=== PATIENT | male | born 1960 | race Caucasian/White ===

== ENCOUNTER 2017-08-12 10:27 | Inpatient (IN) | payer BC ==
--- NOTE | 2017-08-07 13:27 | HP ---
PREPROCEDURE NOTE DATE OF ADMISSION: 08/12/2017 HISTORY: This is a 57-year-old man admitted through the Ambulatory Surgical Service of the [facility] for repair of a recurrent, chronically incarcerated ventral hernia. According to the patient, he has had many hernias in his life. He has had both right and left inguinal hernias repaired, as well as a ventral hernia which is now recurrent. No underlying GI, , or respiratory complaints to suggest predisposition to hernia formation. PAST MEDICAL HISTORY: Significant only for hypercholesterolemia. No history of hypertension, heart disease, diabetes, respiratory, renal, or hepatic insufficiency. PAST SURGICAL HISTORY: Significant for right and left inguinal hernia repairs as well as ventral hernia repair. Patient cannot recall whether the ventral hernia repair was accomplished with or without mesh. Patient also had back surgery for herniated disks. ALLERGIES: None known. REGULAR MEDICATIONS: Livalo. SOCIAL HISTORY: Positive tobacco, 1 pack per week. Social alcohol/not quantified. FAMILY HISTORY: Mother: History of hypertension. REVIEW OF SYSTEMS: Nil. PHYSICAL EXAMINATION: On examination, the patient has an obvious bulge involving the supraumbilical midline in the region of a transverse scar. The remainder of the abdomen is soft and nontender. In the supine position, the hernia is not reducible. IMPRESSION: Recurrent, chronically incarcerated, complex ventral hernia. PLAN: Reduction and repair of chronically incarcerated, recurrent, complex ventral hernia with mesh and bilateral component separation. Indications, terms, possible complications reviewed. Consent obtained. Patient will be seen preoperatively by Dr. Daryl Leonard. Please refer to his notes for those medical details. Claritza EVANS/[id number] cc: Daryl Leonard MD
[2017-08-11 16:50] VITALS: BMI 21.7
[2017-08-12] MEDS ORDERED: ceFAZolin SODIUM 1 GM VIAL ONE (11:14)
[2017-08-12] MEDS ORDERED: TAMSULOSIN HCL 0.4 MG CAP.ER.24H (FP) ONE (11:14)
[2017-08-12] MEDS ORDERED: oxyCODONE HCL 5 MG TABLET PO PRN (12:27)
[2017-08-12] MEDS ORDERED: PROMETHAZINE HCL 25 MG/1 ML VIAL IVPUSH PRN (12:27)
[2017-08-12] MEDS ORDERED: ONDANSETRON 4 MG/2 ML VIAL IVPUSH PRN ×2 (12:27→12:59)
[2017-08-12] MEDS ORDERED: LACTATED RINGERS SOLUTION 1,000 ML IV SCH (12:30)
[2017-08-12] MEDS ORDERED: MIDAZOLAM HCL 2 MG/2 ML SINGLE DOSE VIAL ONE (12:34)
[2017-08-12] MEDS ORDERED: PROPOFOL 20 ML ONE ×2 (12:35→13:23)
[2017-08-12] MEDS ORDERED: ROCURONIUM BROMIDE 50 MG/5 ML VIAL ONE ×2 (12:35→13:23)
[2017-08-12] MEDS ORDERED: DEXAMETHASONE SOD PHOSPHATE 4 MG/1 ML VIAL ONE ×2 (12:59→16:02)
[2017-08-12] MEDS ORDERED: ACETAMINOPHEN 325 MG TABLET (FP) PO PRN (12:59)
[2017-08-12] MEDS ORDERED: morphine CARPU-JECT 10 MG/1 ML DISP.SYRIN IVPB PRN (12:59)
[2017-08-12] MEDS ORDERED: LIDOCAINE HCL/PF 2% SDV 5ML VIAL ONE (12:59)
[2017-08-12] MEDS ORDERED: LIDOCAINE HCL 2% JELLY (5 ML/TUBE) ONE (12:59)
[2017-08-12] MEDS ORDERED: D5-1/2NS+20 MEQ KCL - 20 MEQ/1,000 ML INFUS.BAG IV SCH (13:00)
[2017-08-12] MEDS ORDERED: PHENYLEPHRINE HCL 10 MG/1 ML SINGLE DOSE VIAL ONE (13:35)
[2017-08-12] MEDS ORDERED: NEOSTIGMINE METHYLSULFATE 0.5 MG/ML - 10 ML MDV ONE (13:36)
[2017-08-12] MEDS ORDERED: DEXAMETHASONE SOD PHOSPHATE 4 MG/1 ML VIAL NR ONE (14:05)
[2017-08-12] MEDS ORDERED: BUPIVACAINE HCL/PF 0.25% (2.5MG/ML) 10 ML VIAL IJ ONE (14:05)
[2017-08-12] MEDS ORDERED: BUPIVACAINE HCL/PF 0.25% (2.5MG/ML) 10 ML VIAL ONE (16:02)
[2017-08-12] MEDS ORDERED: HYDROmorphone HCL CARPU-JECT 2 MG/1 ML DISP.SYRIN ONE (16:10)
[2017-08-12] MEDS: HYDROmorphone HCL CARPU-JECT 1 MG/1 ML DISP.SYRIN IVPUSH PRN ×2 (16:12→16:22)
[2017-08-12] MEDS: oxyCODONE HCL 5 MG TABLET PO PRN ×2 (19:15→23:22)
--- NOTE | 2017-08-12 20:04 | OP ---
DATE OF OPERATION: 08/12/2017 PREOPERATIVE DIAGNOSIS: Chronically incarcerated complex recurrent ventral hernia. POSTOPERATIVE DIAGNOSIS: Chronically incarcerated complex recurrent ventral hernia. PROCEDURE: Open bilateral component separation repair of complex chronically incarcerated recurrent ventral hernia with mesh/rectus sheath block (30 mL of 0.25% Marcaine/Decadron). OPERATING SURGEON: Shanel Bojorquez M.D. DIRECTOR DIGITAL ADVERTISING: Benjamin Brown M.D. ANESTHESIA: General, monitored. ANESTHESIOLOGIST: Taryn Dobbins M.D. HISTORY: This is a 57-year-old man who I had seen in the office recently for a recurrent chronically incarcerated complex hernia involving the upper midline of the abdomen, presents for repair of this hernia. Indications, alternatives, possible complications reviewed. Consent obtained. DESCRIPTION OF PROCEDURE: With the patient in the supine position, after general anesthesia, the abdomen was prepped and draped in sterile fashion using chlorhexidine. An upper midline incision was made directly over the hernia and deepened into the subcutaneous space. Hernia sac was easily encountered. It was cleaned to the level of the fascial ring. The sac was opened and the incarcerated omentum reduced. First working in the right direction, the retrorectus sheath was from the overlying rectus muscle fibers using sharp dissection. This separation continued in the inferolateral and superior directions, ultimately reaching the junction of the oblique and transversus musculature. The transversus muscle was from the overlying oblique muscles and the dissection continued in the right lateral direction. Once the right sided separation was completed, attention was now directed to the left side. Again, the left retrorectus sheath was from the overlying left rectus muscle fibers, again in the inferior lateral and superior directions. Once again, the separation of the oblique musculature from the transverse muscle ensued, and then dissection was carried further laterally to the left side. The posterior midline was then reconstructed using continuous 3-0 Maxon suture, reconstructing the posterior midline. Using 2 pieces of mesh, a composite graft was made. A piece of 15 x 15 cm Progrip mesh was sutured to a 16 x 20 cm piece of Elder Bio Ovitex mesh. This was accomplished by circumferentially suturing the meshes together at the periphery using interrupted 3-0 Vicryl sutures. The composite mesh was then placed in the retrorectus space with the Elder Bio side down and the Progrip side up. The mesh was laid out laterally in both directions as well as superiorly and inferiorly in the retrorectus space. Using an Absorbatacker and counter-palpation, the mesh was tacked at the periphery in a circumferential manner, ultimately anchoring the mesh in place. The wound was irrigated, the irrigant retrieved. Adequate hemostasis insured. The anterior sheath was then closed using interrupted 0 PDS sutures, leaving the mesh entirely in the retrorectus space. The subcutaneous tissues were irrigated and adequate hemostasis insured. The wound was ultimately closed in layers. The subcutaneous tissues were approximated using interrupted 3-0 chromic sutures. Subcuticular layer was approximated with interrupted 4-0 Biosyn sutures. Skin edges were approximated using metallic clips. Dermabond applied. Procedure terminated. Needle and instrument count correct. Estimated blood loss minimal. Specimens none. Drains none. Implant Elder Bio Ovitex (16 x 20 cm)/ Progrip polyester mesh (15 cm x 15 cm). Patient tolerated the procedure and was transferred to recovery. SHANEL BOJORQUEZ M.D. RR/[id number] cc: Daryl Leonard M.D.
[2017-08-13 01:50] VITALS: BP 113/75; PULSE 62; TEMP 98
[2017-08-13] MEDS: oxyCODONE HCL 5 MG TABLET PO PRN (04:21)
--- NOTE | 2017-08-13 05:43 | HOSP ---
Subjective - Review of Symptoms Events since last encounter: Called by nurse who reports that the patient wants to leave. I called Dr. Bojorquez's service and discussed with him. He is willing to discharge pt rather than have him sign out AMA as he was supposed to go home later. Instructed nurse to take a verbal order for discharge. I went to see pt, pt is visibly upset at noise level in his room, his roommate was brought up at 2am and he was awoken during this process then his roommate snored very loudly and pt was unable to sleep. Pt states that he is feeling ok from a surgical standpoint and just wishes to go home. Pt offered a room change but still wishes to go. Pt instructed to follow up with Dr. Bojorquez in 2 weeks time. Advised to call his office for an appointment. Physical Examination Vital Signs: Vital Signs Temperature 98.0 F 08/13/17 01:50 Pulse Rate 62 08/13/17 01:50 Respiratory Rate 20 08/13/17 01:50 Blood Pressure 113/75 08/13/17 01:50 O2 Sat by Pulse Oximetry (%) 95 08/12/17 21:00
[2017-08-13] MEDS ORDERED: ENOXAPARIN NA (PORCINE) 40 MG/0.4 ML DISP.SYRIN SQ SCH (10:00)
[2017-08-13] MEDS ORDERED: PANTOPRAZOLE SODIUM 40 MG VIAL IVPUSH SCH (10:00)
[2017-08-13] MEDS ORDERED: ASPIRIN 81 MG CHEWABLE TABLETS PO SCH (10:00)
--- NOTE | 2017-08-13 10:45 | DS ---
DATE OF ADMISSION: 08/12/2017 DATE OF DISCHARGE: 08/13/2017 ADMITTING DIAGNOSIS: Complex incarcerated incisional hernia. DISCHARGE DIAGNOSIS: Complex incarcerated incisional hernia. BRIEF HISTORY: This is a 57-year-old male who presented to [facility] for surgical management of a complex incarcerated incisional hernia. He underwent an open repair of this hernia on August 12 with component separation, myofascial release, mesh, and abdominal wall reconstruction. Please reference Dr. Bojorquez's operative report for further details. Postoperatively, he did well. He is tolerating diet and voiding at the time of discharge. He will go home on his usual home medications that mostly include vitamins and supplements. He will have a new prescription for Percocet which he will take as needed for pain. He will follow with Dr. Bojorquez in approximately 2 weeks' time. He is okay to shower, okay to drive. He will not lift anything more than 20 pounds. He will be on a regular diet, and he will likely require 2 weeks off from work. The patient's discharge was at 5:30 this morning. DO PHOENIX LANCE/[id number]
== END 2017-08-13 07:26 | disposition home or self-care (01) | DRG 355 ==
LOC: JASUSAT 10:27 → JSAMEDAYSX 12:59 → J6S 17:22
PROVIDERS: ADMIT Surgery; ATTEND Surgery
PROC: 0WUF0JZ Supplement Abdominal Wall with Synthetic Substitute, Open Approach (ICD-10-PCS; principal; 2017-08-12 12:00)
DX: K43.0 Incisional hernia with obstruction, without gangrene (principal); E78.5 Hyperlipidemia, unspecified; F17.210 Nicotine dependence, cigarettes, uncomplicated
CPT/HCPCS: 94760

== ENCOUNTER 2018-05-29 16:48 | Emergency (ER) | payer BC ==
[2018-05-29 17:00] VITALS: BMI 21.7
--- NOTE | 2018-05-29 17:20 | PDOC ---
History of Present Illness - General Chief Complaint: Chest Pain Stated Complaint: CHEST PAIN Time Seen by Provider: 05/29/18 17:03 - History of Present Illness Initial Comments: 05/29/18 17:15 58 year old man with past medical history of HLD who presents with tight pressure-like pain in the mid chest that is non radiating and rated 8/10 onset just prior to arrival and associated with shortness of breath. The patient had the same pain yesterday evening around 1800 that lasted for 2 hours and relieved on its own and at that time was associated with dizziness and some sweating. The patient denies nausea and sweating today. He reports a history of URI last week w/ a productive cough that has since resolved. PMHX: as in HPI PSHX: herniated disk, umbilical hernia Meds: livado Allergies: none Tob: 1 pack per week Etoh: Rec drugs: PCP: Past History - Past Medical History Allergies/Adverse Reactions: Allergies Allergy/AdvReac Type Severity Reaction Status Date / Time No Known Drug Allergies Allergy Verified 05/29/18 16:52 Home Medications: Ambulatory Orders Aspirin [ASA -] 81 mg PO DAILY 08/11/17 Calcium Carbonate [Calcium] 500 mg PO DAILY 08/11/17 Calcium Carbonate/Vitamin D3 [Calcium 600-Vit D3 400 Tablet] 1 tab DAILY Cyanocobalamin (Vitamin B-12) [Vitamin B12] 2,500 mcg PO DAILY 08/11/17 Glucosamine/MSM/Chondroitin A [Glucosamine Chondroit MSM Tab] 1 each PO DAILY Mv-Mn/FA/Lycopene/Lut/Hb#178 [Ammon Multi For Men Tablet] 1 tab PO DAILY Wilson-3S/Dha/Epa/Fish Oil [Fish Oil Wilson-3 Softgel] 1 each PO DAILY 08/11/17 Pitavastatin Calcium [Livalo] 4 mg PO DAILY 08/11/17 Ubidecarenone/Vit E Acet [Co Q-10 100 mg Softgel] 1 cap DAILY 08/11/17 Oxycodone HCl/Acetaminophen [Percocet 5-325 mg Tablet] 1 tab PO Q4H PRN #42 tablet MDD 6 08/12/17 Anemia: Yes ( A CHILD) Asthma: No Cancer: No Cardiac Disorders: No CVA: No COPD: No CHF: No Dementia: No Diabetes: No GI Disorders: No Disorders: No HTN: No Hypercholesterolemia: Yes Liver Disease: No Seizures: No Thyroid Disease: No - Surgical History Neurologic Surgery: Yes (lumbar laminectomy) Orthopedic Surgery: Yes (ARTHROSCOPY RIGHT KNEE X2) - Suicide/Smoking/Psychosocial Hx Smoking History: Current every day smoker Have you smoked in the past 12 months: Yes Number of Cigarettes Smoked Daily: 2 Information on smoking cessation initiated: Yes 'Breaking Loose' booklet given: 05/29/18 Hx Alcohol Use: Yes (OCCAS) Drug/Substance Use Hx: Yes (occas) Substance Use Type: Marijuana Hx Substance Use Treatment: No *Physical Exam - Vital Signs Last Vital Signs Temp Pulse Resp BP Pulse Ox 98.4 F 63 16 147/110 100 05/29/18 16:53 05/29/18 16:53 05/29/18 16:53 05/29/18 16:53 05/29/18 16:53 - Physical Exam Comments: 05/29/18 17:20 GENERAL: Awake, alert, and fully oriented, in no acute distress, anxious appearing HEAD: No signs of trauma, normocephalic, atraumatic EYES: EOMI, sclera anicteric, conjunctiva clear ENT: oropharynx clear without exudates. Moist mucosa NECK: Normal ROM, supple, no lymphadenopathy, JVD, or masses LUNGS: No distress, speaks full sentences, clear to auscultation bilaterally HEART: Regular rate and rhythm, normal S1 and S2, no murmurs, rubs or gallops, peripheral pulses normal and equal bilaterally. ABDOMEN: Soft, nontender, normoactive bowel sounds. No guarding, no rebound. No masses EXTREMITIES : Normal inspection, Normal range of motion, no edema. No clubbing or cyanosis. NEUROLOGICAL: Normal speech, normal gait, no focal sensorimotor deficits SKIN: Warm, Dry, normal turgor, no rashes or lesions noted Heart Score/ECG Review - History History: Moderately suspicious - Electrocardiogram EKG: Normal - Age Age: 45-65 - Risk Factors Risk Factors Heart Score: Yes Hx Hypercholesterolemia Based on the list above the patient has:: 1-2 risk factors - Troponin Troponin: </= normal limit - Score Heart Score - Total: 3 ED Treatment Course - LABORATORY CBC & Chemistry Diagram: 05/29/18 17:33 05/29/18 17:33 - RADIOLOGY Radiology Studies Ordered: Category Date Time Status CXRPORT [CHEST X-RAY PORTABLE*] [RAD] Stat Radiology 05/29/18 17:14 Ordered Medical Decision Making - Medical Decision Making 05/29/18 17:20 58 year old man with past medical history of HLD who presents with tight pressure-like pain in the mid chest that is non radiating and rated 8/10 onset just prior to arrival and associated with shortness of breath. The patient had the same pain yesterday evening around 1800 that lasted for 2 hours and relieved on its own and at that time was associated with dizziness and some sweating. DDX including but not limited to: unstable angina vs NTSEMI vs STEMI vs GERD vs PNA W/U: - cbc, cmp, trop - ekg - cxr Scores: Heart score:3 ED Course: Pt. stable vitals. anxious 05/29/18 18:13 Pt reassessed. stable Trop: unremarkable. Pt signed out to Dr. Bach *DC/Admit/Observation/Transfer Diagnosis at time of Disposition: Atypical chest pain - Discharge Dispostion Disposition: HOME Condition at time of disposition: Stable Decision to Admit order: No - Referrals Referrals: Daryl Leonard MD [Primary Care Provider] - - Patient Instructions Printed Discharge Instructions: DI for Chest Pain Additional Instructions: You were seen in the ED for complaints of chest pain. In the ED you were evaluated with labwork and imaging. Your results were unremarkable. There does not appear to be an immediate need for hospitalization. You are advised to follow up with your primary care physician within 1 week. Please attempt to stop smoking cigarettes, as this may be exacerbating your chest pain. Return to the ED immediately if you have worsening chest pain, nausea, shortness of breath, fevers, or abdominal pain. - Post Discharge Activity
[2018-05-29 17:41] LABS: BASO % 0.7 % (0-2.0); EOS % 1.5 % (0-4.5); HEMATOCRIT 41.8 % (35.4-49); HEMOGLOBIN 14.5 GM/dL (11.7-16.9); LYMPH % 26.1 % (8-40); MCH 31.1 pg (25.7-33.7); MCHC 34.6 g/dl (32.0-35.9); MEAN CELL VOLUME 89.7 fl (80-96); MEAN PLT VOLUME 6.7 fl (7.5-11.1); MONO % 7.4 % (3.8-10.2); NEUT % 64.3 % (42.8-82.8); PLATELET COUNT 313 K/MM3 (134-434); RBC 4.65 M/mm3 (4.00-5.60); RDW 13.3 % (11.9-15.9); WHITE BLOOD COUNT 8.7 K/mm3 (4.0-10.0)
--- NOTE | 2018-05-29 18:01 | PDOC ---
Attending Attestation - HPI HPI: 05/29/18 18:05 The patient is a 58 year old male, with a significant past medical history of hyperlipidemia, who presents to the emergency department with tight, pressure- like pain to the center of his chest with associated shortness of breath today. He states he experienced the chest tightness yesterday for about 2 hours with associated dizziness and sweating. He denies dizziness or diaphoresis now. He reportedly had a cold last week with a productive cough which has since resolved. The patient denies headache and dizziness. The patient denies fever, chills, nausea, vomit, diarrhea and constipation. The patient denies dysuria, frequency , urgency and hematuria. Allergies: NKDA - Physicial Exam PE: 05/29/18 18:05 ROS: A complete review of 10 out of 10 review of systems is taken and is negative apart from what is previously mentioned below and in the HPI. Adult Physical Exam Vitals: Triage vital signs reviewed General Appearance: No acute distress, well nourished, well developed Head: Atraumatic Eyes: Pupils equal reactive round, extraocular movement intact Neck: Supple; No nuchal rigidity Chest Wall: Nontender Cardiac: Regular rate and rhythm, no murmurs, no rubs, no gallops Lungs: Clear to auscultation bilateral, good air movement bilaterally Abdomen: Soft, nondistended, normal bowel sounds, nontender to palpation Extremities: Full range of motion to all extremities, no cyanosis, clubbing, or edema Skin: Warm and dry, no rashes or lesions, no rash, no petechiae Neuro: AOX3; Cranial Nerves 2-12 grossly intact, Strength intact to all extremities, Sensation intact to all extremities, gait normal Psych: Normal mood, normal affect - Medical Decision Making 05/29/18 18:05 Documentation prepared by Yesenia Stephenson, acting as medical center representative for Akash Rockwell MD <Yesenia Stephenson - Last Filed: 05/29/18 18:04> - Resident Resident Name: Dominique Nava - ED Attending Attestation I have performed the following: I have examined & evaluated the patient, The case was reviewed & discussed with the resident, I agree w/resident's findings & plan, Exceptions are as noted - Medical Decision Making Heart score 3 active tobacco troponin negative 2 patient currently asymptomatic Patient has primary care follow-up low suspicion for ACS at this time however given patient's age and medical history is I recommended a follow-up with his primary care provider on Thursday provided the patient with cardiology follow-up as well. No PE DVT risk factors. Findings, the need for follow-up, strict return instructions discussed with patient. <Akash Rockwell - Last Filed: 05/29/18 23:22> Heart Score/ECG Review - ECG Impressions Comment:: 05/29/18 18:01 EKG performed at 1656. Demonstrates normal sinus rhythm 60 bpm. MT interval 142 QRS 98, QTC 42. No ST elevations or T-wave inversions. Interpreted by me. <Akash Rockwell - Last Filed: 05/29/18 23:22>
[2018-05-29 18:06] LABS: ALBUMIN 3.8 g/dl (3.4-5.0); ANION GAP 12 MMOL/L (8-16); BILIRUBIN,TOTAL 0.3 mg/dL (0.2-1.0); BLOOD UREA NITROGEN 14 mg/dL (7-18); CALCIUM 9.2 mg/dL (8.5-10.1); CHLORIDE 109 mmol/L (98-107); CO2 20 mmol/L (21-32); CREATININE 1.1 mg/dL (0.7-1.3); GLUCOSE,RANDOM 100 mg/dL (74-106); SGPT/ALT 39 U/L (12-78); SODIUM 141 mmol/L (136-145); TOT PROT 7.6 g/dl (6.4-8.2)
[2018-05-29 18:09] LABS: ALK PHOS 69 U/L (45-117)
[2018-05-29 18:48] LABS: POTASSIUM 4.4 mmol/L (3.5-5.1); SGOT/AST 23 U/L (15-37)
--- NOTE | 2018-05-29 19:07 | PDOC ---
*Physical Exam - Vital Signs Last Vital Signs Temp Pulse Resp BP Pulse Ox 98.4 F 63 16 147/110 99 05/29/18 16:53 05/29/18 16:53 05/29/18 16:53 05/29/18 16:53 05/29/18 18:26 ED Treatment Course - LABORATORY CBC & Chemistry Diagram: 05/29/18 17:33 05/29/18 17:33 - ADDITIONAL ORDERS Additional order review: Laboratory Results 05/29/18 17:33 Sodium 141 Potassium 4.4 Chloride 109 H Carbon Dioxide 20 L Anion Gap 12 BUN 14 Creatinine 1.1 Creat Clearance w eGFR > 60 Random Glucose 100 Calcium 9.2 Total Bilirubin 0.3 AST 23 ALT 39 Alkaline Phosphatase 69 Creatine Kinase 158 Troponin I < 0.02 Total Protein 7.6 Albumin 3.8 05/29/18 17:33 RBC 4.65 MCV 89.7 MCHC 34.6 RDW 13.3 MPV 6.7 L Neutrophils % 64.3 Lymphocytes % 26.1 Monocytes % 7.4 Eosinophils % 1.5 Basophils % 0.7 Medical Decision Making - Medical Decision Making Pt signed out by Dr. Nava. Pt presenting with pressure-like chest pain; had URI symptoms last week. No ECG changes today, first trop negative. Will perform second troponin, scheduled by Dr. Nava (8:30 pm). Pending labs and disposition. 05/29/18 18:52 Took repeat vital signs. HR 59, BP 139/97, O2 100% 05/29/18 19:07 Spoke with laboratory, second troponin <.02. Informed pt. Advised to quit smoking cigarettes. Pt will follow-up with PCP on Thursday. Strict return precautions provided with pt understanding. 05/29/18 20:52 *DC/Admit/Observation/Transfer Diagnosis at time of Disposition: Atypical chest pain - Discharge Dispostion Disposition: HOME Condition at time of disposition: Stable Decision to Admit order: No - Referrals Referrals: Daryl Leonard MD [Primary Care Provider] - - Patient Instructions Printed Discharge Instructions: DI for Chest Pain Additional Instructions: You were seen in the ED for complaints of chest pain. In the ED you were evaluated with labwork and imaging. Your results were unremarkable. There does not appear to be an immediate need for hospitalization. You are advised to follow up with your primary care physician within 1 week. Please attempt to stop smoking cigarettes, as this may be exacerbating your chest pain. Return to the ED immediately if you have worsening chest pain, nausea, shortness of breath, fevers, or abdominal pain. - Post Discharge Activity
[2018-05-29 21:11] VITALS: BP 131/74; PULSE 77; TEMP 98.2
--- NOTE | 2018-05-30 21:59 | EKG ---
Test Reason : Blood Pressure : / mmHG Vent. Rate : 060 BPM Atrial Rate : 060 BPM P-R Int : 142 ms QRS Dur : 098 ms QT Int : 402 ms P-R-T Axes : 059 051 048 degrees QTc Int : 402 ms NORMAL SINUS RHYTHM VOLTAGE CRITERIA FOR LEFT VENTRICULAR HYPERTROPHY ABNORMAL ECG NO PREVIOUS ECGS AVAILABLE Confirmed by SUSI RUELAS MD ([id number]) on 05/30/2018 9:58:52 PM Referred By: Confirmed By:SUSI RUELAS MD
== END 2018-05-29 21:06 | disposition home or self-care (01) ==
LOC: JER 16:48
DX: R07.89 Other chest pain (principal); E78.5 Hyperlipidemia, unspecified; E78.00 Pure hypercholesterolemia, unspecified
CPT/HCPCS: 36415; 71045-TC-FY; 80053; 82550; 82553; 84484; 85025; 93005; 93010; 99284-25

== ENCOUNTER 2018-08-11 08:09 | Day surgery (SDC) | payer OTHER, BC ==
[2018-08-10 09:49] VITALS: BMI 21.9
[2018-08-11] MEDS ORDERED: MIDAZOLAM HCL 2 MG/2 ML SINGLE DOSE VIAL ONE ×2 (09:34)
[2018-08-11] MEDS ORDERED: ONDANSETRON 4 MG/2 ML VIAL IVPUSH PRN (10:00)
[2018-08-11] MEDS ORDERED: oxyCODONE HCL 5 MG TABLET PO PRN ×2 (10:00)
[2018-08-11] MEDS ORDERED: LACTATED RINGERS SOLUTION 1,000 ML IV SCH (10:00)
--- NOTE | 2018-08-11 10:07 | HP ---
Satellite PMH - Chief Complaint Chief Complaint: right shoulder pain - Past Medical History Allergies/Adverse Reactions: Allergies Allergy/AdvReac Type Severity Reaction Status Date / Time No Known Drug Allergies Allergy Verified 08/11/18 08:40 - Current Medications Current Medications: Home Medications Medication Instructions Recorded Aspirin [ASA -] 81 mg PO DAILY 08/11/17 Calcium Carbonate [Calcium] 500 mg PO DAILY 08/11/17 Cyanocobalamin (Vitamin B-12) 2,500 mcg PO DAILY 08/11/17 [Vitamin B12] Glucosamine/MSM/Chondroitin A 1 each PO DAILY 08/11/17 [Glucosamine Chondroit MSM Tab] Mv-Mn/FA/Lycopene/Lut/Hb#178 [Ammon 1 tab PO DAILY 08/11/17 Multi For Men Tablet] [place]-3S/Dha/Epa/Fish Oil [Fish 1 each PO DAILY 08/11/17 Oil [place]-3 Softgel] Pitavastatin Calcium [Livalo] 4 mg PO DAILY 08/11/17 Ubidecarenone/Vit E Acet [Co Q-10 1 cap DAILY 08/11/17 100 mg Softgel] Oxycodone HCl/Acetaminophen 1 - 2 tab PO Q6H #30 tab MDD 6 08/11/18 [Percocet 5-325 mg Tablet] Satellite Physical Exam - Physical Examination Vital Signs: Vital Signs Period Temp Pulse Resp BP Sys/Jaimes Pulse Ox Last 24 Hr 97.7 F 54 16 124/86 98 General Appearance: Well Nourished, Well Developed, Alert & Oriented x3 ENT: Clear Lung: Normal air movement Heart: Regular rate & rhythm Extremities: Other (right shoulder- + ttp, decr rom, +neer, + hdz, + empty can, nvi MRi + rct) Neurological: Intact, Alert, Oriented Satellite Impression/Plan - Impression/Plan Impression: right shoulder rct Operative Procedure: right shoulder arthroscopy with RCR, SAD Date to be Performed: 08/11/18
[2018-08-11] MEDS ORDERED: PROPOFOL 20 ML ONE (10:41)
[2018-08-11] MEDS ORDERED: ROCURONIUM BROMIDE 50 MG/5 ML VIAL ONE (10:41)
[2018-08-11] MEDS ORDERED: ceFAZolin SODIUM 1 GM VIAL IVPB ONE (11:00)
[2018-08-11] MEDS ORDERED: GLYCOPYRROLATE 0.2 MG/1 ML VIAL ONE (11:50)
[2018-08-11] MEDS ORDERED: DEXAMETHASONE SOD PHOSPHATE 4 MG/1 ML VIAL ONE (11:50)
[2018-08-11] MEDS ORDERED: ceFAZolin SODIUM 1 GM VIAL ONE (11:50)
[2018-08-11] MEDS ORDERED: LIDOCAINE HCL/PF 2% SDV 5ML VIAL ONE (11:50)
--- NOTE | 2018-08-11 11:57 | OP ---
Operative Note - Note: Operative Date: 08/11/18 ([facility]) Pre-Operative Diagnosis: right shoulder rct Operation: right shoulder arthroscopy with RCR, SAD Implants: arthrex speedbridge Post-Operative Diagnosis: Same as Pre-op Surgeon: Randell Loera Audit Spec: Phu Sims Anesthesiologist/COMPLIANCE ADMINISTRATOR: Taryn Dobbins MD Anesthesia: General, Local Specimens Removed: shavings Estimated Blood Loss (mls): 5 Operative Report Dictated: Yes
[2018-08-11 12:39] VITALS: TEMP 97.5
[2018-08-11 13:07] VITALS: BP 137/76; PULSE 52
--- NOTE | 2018-08-11 13:44 | SPEC ---
DATE OF OPERATION: 08/11/2018 PREOPERATIVE DIAGNOSIS: Right rotator cuff tear. POSTOPERATIVE DIAGNOSIS: Right rotator cuff tear. PROCEDURE: Right shoulder arthroscopy, subacromial decompression, and rotator cuff repair with SpeedBridge. SURGICAL ATTENDING: Randell Loera MD CORRESPONDENCE SCHOOL TEACHER: ENZO Dwyer ANESTHESIA: Regional and general. CLOSURE: A SpeedBridge from [employer] for the rotator cuff and 3-0 nylon for skin. ESTIMATED BLOOD LOSS: Negligible. COMPLICATIONS: None. CONDITION: To the recovery room in stable condition. DESCRIPTION OF PROCEDURE: The patient was taken to the operating room on August 11, 2018. General and regional anesthesia was administered by the anesthesiologist. IV Kefzol was administered prophylactically prior to the case. The patient was placed in the beach chair position with all prominences well padded. The right shoulder area was prepped and draped in the usual sterile fashion. First, a diagnostic arthroscopy of the glenohumeral joint was made. Posterior portal was made 2 fingerbreadths below the acromion with a 15 blade followed by a blunt trocar. Circumferential exam of the glenohumeral joint revealed the following: Intact labrum circumferentially, intact glenoid and humeral head articular cartilage, intact biceps and biceps anchor, intact subscapularis through its insertion. Looking superiorly, there was a large rotator cuff tear. The fluid was drained from the shoulder, and the trocar was removed. The posterior trocar was redirected in the subacromial space. An accessory lateral and anterior portal were made with a 15 blade followed by a blunt trocar. The lateral portal was used as the working portal. Through this portal, an ArthroCare device was applied. This was used to debride the soft tissue in the subacromial aspect. The coracoacromial ligament was identified and detached off the anterior acromion and was visualized to drop inferiorly and was further debrided. The bone on the undersurface of the acromion was burred to the appropriate level giving appropriate height for the rotator cuff beneath. Looking inferiorly, there was a large rotator cuff tear, soft tissue encasing the rotator cuff, and the deltoid recess was debrided using ArthroCare device and the shaver. The bed on the greater tuberosity was burred to give a good bed for the double row SpeedBridge repair. A grasper was used to ensure that the rotator cuff was able to be reduced sufficiently to the greater tuberosity. The rotator cuff was freed on the bursal and the articular surface to allow more excursion of the tendon. Two anchors preloaded with FiberTape suture were placed on the articular margin, one more anteriorly, one more posteriorly. They were shuttled through the anterior portal with a grasper. Each limb was individually passed through the rotator cuff, two anteriorly and two posteriorly. One anterior limb and one posterior limb was delivered through the lateral portal. They were placed through the eyelet hole of the more lateral anchor, which was then malleted into place much more laterally, reducing the rotator cuff to the greater tuberosity. The swivel was then screwed into place. The sutures were then cut flush with the bone. Next, one anterior and one posterior limb that was remaining were shuttled from the anterior to the lateral portal. The sutures were placed through the eyelet hole of the anterior anchor, which was malleted on the anterior aspect of the greater tuberosity. After tensioning it, it was deployed the entire way and then screwed home giving an excellent reduction to the anterior portion of the rotator cuff. After the sutures were cut, the rotator cuff was probed and found to have good stability with excellent matting down of the rotator cuff to the greater tuberosity. The shoulder was taken through the range of motion and found to have good clearance on the undersurface of the acromion with good, solid repair. The shoulder was drained of the fluid. The portals were closed with 3-0 nylon suture. A sterile pressure dressing followed by a shoulder immobilizer was applied. The patient was awoken from anesthesia and transferred to recovery room in stable condition. No complications. Estimated blood loss negligible. Claritza [id number]
--- NOTE | 2018-08-12 16:55 | PATH ---
Surgical Pathology Report Patient Name: TRESA SAINI [facility]. Rec. #: [id number] /Age/Gender: 1960 (Age: 58) / M Account: [id number] Location: [facility] SURGICAL Taken: 08/11/2018 Received: 08/11/2018 Reported: 08/12/2018 Physicians: Randell Loera M.D. Specimen(s) Received RIGHT SHOULDER SHAVINGS Clinical History Right shoulder tear Final Diagnosis SHOULDER SHAVINGS, RIGHT, ARTHROSCOPY, SUBACROMIAL DECOMPRESSION, ROTATOR CUFF REPAIR: FRAGMENTS OF BENIGN CARTILAGE, DENSE FIBROCONNECTIVE TISSUE, ADIPOSE TISSUE, AND SKELETAL MUSCLE. Electronically Signed Miryam Tom M.D. Gross Description Received in formalin, labeled "right shoulder shavings," is a 3.4 x 2.6 x 0.3 cm. aggregate of shoemaker-yellow soft tissue fragments. A guest service representative portion is submitted in one cassette. 08/11/201808/11/2018
== END 2018-08-11 14:10 | disposition home or self-care (01) ==
LOC: JASU-SURG 08:09
PROVIDERS: ATTEND Orthopaedic Surgery
PROC: 0RNJ4ZZ Release Right Shoulder Joint, Percutaneous Endoscopic Approach (ICD-10-PCS; principal; 2018-08-11 10:15)
PROC: 0LQ14ZZ Repair Right Shoulder Tendon, Percutaneous Endoscopic Approach (ICD-10-PCS; 2018-08-11 10:15)
DX: M75.101 Unspecified rotator cuff tear or rupture of right shoulder, not specified as traumatic (principal)
CPT/HCPCS: 88304-TC; 94760

== ENCOUNTER 2019-10-01 07:07 | Emergency (ER) | payer OTHER, BC ==
[2019-10-01 07:40] VITALS: BMI 21.7
[2019-10-01] MEDS ORDERED: KETOROLAC TROMETHAMINE 30 MG/1 ML VIAL ONE (07:48)
[2019-10-01] MEDS ORDERED: KETOROLAC TROMETHAMINE 30 MG/1 ML VIAL IVPUSH ONE (07:54)
[2019-10-01] MEDS ORDERED: ACETAMINOPHEN 1000 MG/100 ML VIAL (NON FORMULARY) IVPB ONE (07:56)
[2019-10-01] MEDS ORDERED: ACETAMINOPHEN INJECTION 100 ML IVPB ONE (08:00)
--- NOTE | 2019-10-01 08:06 | PDOC ---
History of Present Illness - General Chief Complaint: Pain, Acute Stated Complaint: GENERALIZE PAIN - History of Present Illness Initial Comments: The pt is a 59M w/ a history of chronic back and right knee pain who presents for evaluation of acute on chronic right knee pain and left shoulder pain. The pt reports that he recently finished a medrol dose pack for the knee and has been taking Naproxen which typically makes the pain bearable. However, today he is 'barely able to walk.' He has had previous arthroscopy on the knee but no recent procedures. Denies trauma to his knee or shoulder. The pain is achy/sharp, nonradiating, worse with movement and touch, and not alleviated by anything he can identify. Denies fevers/chills, chest pain, trouble breathing, abdominal pain, N/V/C/D, dysuria, penile discharge. Endorses intermittent golfing F/u w/ Dr. Loera S/p R knee arthoscopy and MRI, hx of torn meniscus Due for surgery on 10/09/18 10/01/19 08:28 Past History - Past Medical History Allergies/Adverse Reactions: Allergies Allergy/AdvReac Type Severity Reaction Status Date / Time No Known Drug Allergies Allergy Verified 10/01/19 07:20 Home Medications: Ambulatory Orders Ezetimibe [Zetia] 10 mg PO DAILY 10/01/19 Naproxen [EC-Naprosyn] 500 mg PO BID PRN #30 tablet. 10/01/19 Rosuvastatin [Crestor -] 20 mg PO HS 10/01/19 Anemia: Yes ( A CHILD) Asthma: No Cancer: No Cardiac Disorders: No CVA: No COPD: No CHF: No Dementia: No Diabetes: No GI Disorders: No Disorders: No HTN: No Hypercholesterolemia: Yes Liver Disease: No Seizures: No Thyroid Disease: No - Surgical History Abdominal Surgery: Yes (umbilical hernia) Neurologic Surgery: Yes (lumbar laminectomy) Orthopedic Surgery: Yes (ARTHROSCOPY RIGHT KNEE X2) - Psycho Social/Smoking Cessation Hx Smoking History: Unknown if ever smoked Have you smoked in the past 12 months: Yes Number of Cigarettes Smoked Daily: 2 'Breaking Loose' booklet given: 05/29/18 Hx Alcohol Use: Yes (OCCAS) Drug/Substance Use Hx: Yes (occas) Substance Use Type: Marijuana Hx Substance Use Treatment: No Review of Systems - Review of Systems Able to Perform ROS?: Yes Comments:: GENERAL/CONSTITUTIONAL: No fever or chills. No weakness HEAD, EYES, EARS, NOSE AND THROAT: No change in vision. No change in hearing. No sore throat CARDIOVASCULAR: No chest pain or shortness of breath RESPIRATORY: Denies cough, hemoptysis GASTROINTESTINAL: No nausea, vomiting, diarrhea or constipation GENITOURINARY: No dysuria, frequency, or change in urination MUSCULOSKELETAL: +R knee pain and swelling; +L shoulder pain SKIN: No rash NEUROLOGIC: No headache, vertigo, loss of consciousness, or change in strength/ sensation ENDOCRINE: No increased thirst. No abnormal weight change HEMATOLOGIC/LYMPHATIC: No anemia, easy bleeding, or history of blood clots ALLERGIC/IMMUNOLOGIC: No hives or skin allergy 10/01/19 08:06 Is the patient limited Yi proficient: No *Physical Exam - Vital Signs Last Vital Signs Temp Pulse Resp BP Pulse Ox 97.8 F 95 H 22 H 136/93 99 10/01/19 07:32 10/01/19 07:32 10/01/19 07:32 10/01/19 07:32 10/01/19 07:32 - Physical Exam GENERAL: Awake, alert, and oriented to person/place/time, in no acute distress HEAD: No signs of trauma, normocephalic, atraumatic EYES: PERRLA, EOMI, sclera anicteric, conjunctiva clear ENT: Hearing grossly normal, nares patent, oropharynx clear without exudates. Moist mucosa LUNGS: No distress, speaks in full sentences, clear to auscultation bilaterally HEART: Regular rate and rhythm, normal S1 and S2, no murmurs appreciated, peripheral pulses normal and equal bilaterally ABDOMEN: Soft, nontender, normoactive bowel sounds. No guarding, no rebound EXTREMITIES: Superior R knee effusion/TTP, no erythema, painful AROM/PROM NEUROLOGICAL: Cranial nerves II through XII grossly intact. Normal speech, ambulating in ED, no focal sensorimotor deficits SKIN: Warm, Dry 10/01/19 08:06 ED Treatment Course - LABORATORY CBC & Chemistry Diagram: 10/01/19 08:00 10/01/19 08:00 - Medications Given in the ED: ED Medications Discontinued Medications Generic Name Dose Route Start Last Admin Trade Name Freq PRN Reason Stop Dose Admin Acetaminophen 1,000 mg 10/01/19 07:56 12/28/19 08:06 Ofirmev Injection - IVPB 10/01/19 07:57 1,000 mg ONCE ONE Administration Ketorolac Tromethamine 30 mg 10/01/19 07:54 10/01/19 07:57 Toradol Injection - IVPUSH 10/01/19 07:55 30 mg ONCE ONE Administration Medical Decision Making - Medical Decision Making The pt is a 59M w/ a history of chronic back and right knee pain who presents for evaluation of acute on chronic right knee pain and left shoulder pain. ED Course CMP, CBC, ESR, CRP UA, GC S/p Toradol and Ofirmev with little relief Will give Morphine 4mg IV once 10/01/19 08:30 Leukocytosis noted, pt finished steroids yesterday, likely reactive Pt afebrile No anemia Lytes unremarkable LFTs unremarkable No SAMY ESR and CRP elevated Knee XR w/ small suprapatellar effusion Knee evaluated w/ POCUS, effusion noted s/p R knee arthrocentesis, 20cc of serosanguanous fluid removed Sent to cell count, crystal analysis, and culture Pt feels improved s/p arthrocentesis 10/01/19 10:27 Synovial wbc [address] Loera, no abx indicated at this time Rx for Naproxen Plan for D/C w/ PCP and ortho f/u Discharge instructions and return precautions given Patient in agreement and verbalized understanding Dispo: Home 10/01/19 12:28 Discharge - Discharge Information Problems reviewed: Yes Clinical Impression/Diagnosis: Effusion, right knee Condition: Stable - Admission No - Additional Discharge Information Prescriptions: Naproxen [EC-Naprosyn] 500 mg PO BID PRN #30 tablet.dr DHALIWAL Reason: Pain - Follow up/Referral Referrals: Randell Loera MD [Staff Physician] - Daryl Leonard MD [Primary Care Provider] - Dm Arteaga MD [Staff Physician] - Alejandro Marte MD [Non Staff, Medical] - Mitchell Eng MD [Non Staff, Medical] - Brandon Moreland [Non Staff, Medical] - - Patient Discharge Instructions Patient Printed Discharge Instructions: DI for Bursitis, How To Perform RICE ( Rest, Ice, Compress, Elevate), DI for Knee Effusion Additional Instructions: You were seen in the Emergency Department for evaluation of right knee and shoulder pain. You were found to have a right knee effusion which was drained. You labs were otherwise overall unremarkable. Please take the results to your follow up appointment. Follow up with your primary care physician within the next week. For pain you may take Tylenol 650mg every 6 hours and Ibuprofen 600mg every 6-8 hours, alternating them each time. Return to the Emergency Department if you develop fevers, chest pain, trouble breathing, worsening pain, change in sensation, worsening symptoms, or any new/ concerning symptoms. - Post Discharge Activity
[2019-10-01 08:24] LABS: BASO % 0.4 % (0-2.0); EOS % 0.2 % (0-4.5); HEMATOCRIT 43.1 % (35.4-49); HEMOGLOBIN 14.2 GM/dL (11.7-16.9); LYMPH % 12.5 % (8-40); MCH 29.3 pg (25.7-33.7); MCHC 32.9 g/dl (32.0-35.9); MEAN CELL VOLUME 89.3 fl (80-96); MEAN PLT VOLUME 6.5 fl (7.5-11.1); MONO % 8.3 % (3.8-10.2); NEUT % 78.6 % (42.8-82.8); PLATELET COUNT 443 K/MM3 (134-434); RBC 4.82 M/mm3 (4.00-5.60); RDW 13.8 % (11.9-15.9); WHITE BLOOD COUNT 18.7 K/mm3 (4.0-10.0)
[2019-10-01] MEDS ORDERED: morphine CARPU-JECT 4 MG/1 ML DISP.SYRIN IVPUSH ONE (08:30)
[2019-10-01] MEDS ORDERED: morphine SULFATE 4 MG/ML VIAL ONE (08:36)
[2019-10-01 08:41] LABS: ALBUMIN 3.6 g/dl (3.4-5.0); BILIRUBIN,TOTAL 0.8 mg/dL (0.2-1); BLOOD UREA NITROGEN 13.1 mg/dL (7-18); CALCIUM 9.6 mg/dL (8.5-10.1); CREATININE 0.9 mg/dL (0.55-1.3); POTASSIUM 3.8 mmol/L (3.5-5.1); TOT PROT 7.8 g/dl (6.4-8.2)
[2019-10-01 08:42] LABS: INR 1.03 (0.83-1.09); PROTHROMBIN TIME (PATIENT) 12.1 SEC (9.7-13.0)
[2019-10-01 08:56] LABS: EPI CELLS 0.3 /HPF (0-5/HPF); HYALINE CASTS 1 /lpf (0-8); URINE APPEARANCE CLEAR; URINE BACTERIA 0 /hpf (NEGATIVE); URINE BILIRUBIN NEGATIVE (NEGATIVE); URINE COLOR YELLOW; URINE GLUCOSE (UA) NEGATIVE (NEGATIVE); URINE KETONE NEGATIVE (NEGATIVE); URINE LEUK ESTERASE NEGATIVE (NEGATIVE); URINE NITRITE NEGATIVE (NEGATIVE); URINE PROTEIN NEGATIVE (NEGATIVE); URINE RBC 20 /hpf (0-4); URINE UROBILINOGEN 0.2 mg/dL (0.2-1.0); URINE WBC 0 /hpf (0-5)
[2019-10-01] MEDS ORDERED: LIDOCAINE HCL 1%, 10 MG/ML (50 mL VIAL) SQ ONE (09:53)
[2019-10-01] MEDS ORDERED: LIDOCAINE HCL 1%, 10 MG/ML (20ML VIAL) ONE (09:53)
[2019-10-01 10:15] LABS: ERYTHROCYTE SEDIMENTATION RATE 69 mm/hr (0-20)
[2019-10-01 12:00] LABS: SYNOVIAL FLUID SOURCE SYNOVIAL
[2019-10-01 12:01] LABS: SYNOVIAL FLUID RBC 12752 /mm3
--- NOTE | 2019-10-01 12:09 | PDOC ---
Attending Attestation - Resident Resident Name: Catalino Wynne - HPI HPI: 10/01/19 11:49 59 y/o male here in ED for evaluation of rt knee pain,shoulder pain and various joint pain. Pt was given a medrol dose pack for his knee pain completed it 2-3 days ago was doing better on steroids pain returned when steroids competed. Today pt says he has so much pain that walking was difficult, so he came into ED for evaluation. - Physicial Exam PE: 10/01/19 12:09 general: well nourished non toxic appearing male seen lying in bed not in acute distress Lungs: + bs jayesh cta Heart: s1s2 regular Abd: + bs abd soft no guarding or tenderness Ext: rt knee minima swelling, no erythema, no excessive warmth noted Neuro: Pt is alert and oriented x3, romana no focal deficits - Medical Decision Making 10/01/19 12:12 59 y/o male with h/o rt knee pain, due to have knee sx in the next few weeks, pt with multiple complaints of joint pain Plan: Pt's labs and xray results reviewed, knee tapped , pt felt better after tap. Pt with elevated esr, and wbc but elevated wbc believed to be realted to recent treatment with steroids. Resident discussed with ortho prior to discharge , pt is stable for dc home with Nsaid for pain and out pt f/u in ortho clinci next week, pt may need out pt rheumatology eval due to polymyalgia. Lyme screen added to todays labs, testing for GC/Chylymdia is pending, along with cutures. pt agrees with this dc plan, PT left ED in stable condition. 10/01/19 13:43
[2019-10-01 13:25] VITALS: BP 127/75; PULSE 63; TEMP 98
[2019-10-01 18:09] LABS: SYNOVIAL FLUID LYMPHOCYTES 8 %; SYNOVIAL FLUID MACROPHAGES 40 %; SYNOVIAL FLUID MONOCYTES 14 %; SYNOVIAL FLUID NEUTROPHILS 38 %
== END 2019-10-01 13:32 | disposition home or self-care (01) ==
LOC: JER 07:07
PROC: 0S9C3ZZ Drainage of Right Knee Joint, Percutaneous Approach (ICD-10-PCS; principal; 2019-10-01)
PROC: 3E023BZ Introduction of Anesthetic Agent into Muscle, Percutaneous Approach (ICD-10-PCS; 2019-10-01)
PROC: 3E033NZ Introduction of Analgesics, Hypnotics, Sedatives into Peripheral Vein, Percutaneous Approach (ICD-10-PCS; 2019-10-01)
PROC: 3E033NZ Introduction of Analgesics, Hypnotics, Sedatives into Peripheral Vein, Percutaneous Approach (ICD-10-PCS; 2019-10-01)
PROC: 3E0333Z Introduction of Anti-inflammatory into Peripheral Vein, Percutaneous Approach (ICD-10-PCS; 2019-10-01)
DX: M25.461 Effusion, right knee (principal); E78.00 Pure hypercholesterolemia, unspecified; Z87.09 Personal history of other diseases of the respiratory system
CPT/HCPCS: 20610; 36415; 73030-TC-LT-FY; 73562-TC-RT-FY; 80053; 81003; 82550; 84484; 85025; 85610; 85651; 86140; 86618; 87070; 87075; 87205; 87491; 87591; 89051; 89060; 96372; 96374; 96375; 99282-25; J0131

== ENCOUNTER 2019-10-07 06:40 | Day surgery (SDC) | payer OTHER, BC ==
[2019-10-06 12:18] VITALS: BMI 21.7
--- NOTE | 2019-10-07 08:07 | HP ---
[facility] - Chief Complaint Chief Complaint: right knee pain - Past Medical History Allergies/Adverse Reactions: Allergies Allergy/AdvReac Type Severity Reaction Status Date / Time No Known Drug Allergies Allergy Verified 10/06/19 12:02 - Current Medications Current Medications: Home Medications Medication Instructions Recorded Ezetimibe [Zetia] 10 mg PO DAILY 10/01/19 Rosuvastatin [Crestor -] 20 mg PO DAILY 10/01/19 Oxycodone HCl/Acetaminophen 1 each PO QID #20 tablet MDD 4 10/07/19 [Oxycodone-Acetaminophen 5-325] [facility] Physical Exam - Physical Examination Vital Signs: Vital Signs Period Temp Pulse Resp BP Sys/Jaimes Pulse Ox Last 24 Hr 98 F 81 18 123/85 97 General Appearance: Well Nourished, Well Developed, Alert & Oriented x3 ENT: Clear Lung: Normal air movement Extremities: Other (right knee- + swellimg, + ttp ,decr rom, +mcmurrays, nvi) Neurological: Intact, Alert, Oriented [facility] Impression/Plan - Impression/Plan Impression: right knee internal derangement Operative Procedure: right knee arthroscopy Date to be Performed: 10/07/19
[2019-10-07] MEDS ORDERED: LIDOCAINE 1%/EPI 1:100000 (20 ML MULTI DOSE VIAL) ONE (09:27)
[2019-10-07] MEDS ORDERED: BUPIVACAINE HCL/PF 0.5% (5MG/ML) 10 ML VIAL ONE (09:27)
[2019-10-07] MEDS ORDERED: MIDAZOLAM HCL 2 MG/2 ML SINGLE DOSE VIAL ONE (11:03)
[2019-10-07] MEDS ORDERED: PROPOFOL 20 ML ONE ×2 (11:10)
[2019-10-07] MEDS ORDERED: LIDOCAINE HCL 2% JELLY (5 ML/TUBE) ONE (11:16)
[2019-10-07] MEDS ORDERED: DEXAMETHASONE SOD PHOSPHATE 4 MG/1 ML VIAL ONE (11:16)
[2019-10-07] MEDS ORDERED: ONDANSETRON 4 MG/2 ML VIAL ONE (11:16)
[2019-10-07] MEDS ORDERED: ceFAZolin SODIUM 1 GM VIAL ONE (11:16)
[2019-10-07] MEDS ORDERED: LIDOCAINE HCL/PF 2% SDV 5ML VIAL ONE (11:16)
[2019-10-07] MEDS ORDERED: KETOROLAC TROMETHAMINE 30 MG/1 ML VIAL ONE (11:16)
[2019-10-07] MEDS ORDERED: SEVOFLURANE 250 ML BTL ONE (11:25)
[2019-10-07] MEDS ORDERED: ONDANSETRON 4 MG/2 ML VIAL IVPUSH PRN (12:05)
[2019-10-07] MEDS ORDERED: oxyCODONE HCL 5 MG TABLET PO PRN ×2 (12:05)
[2019-10-07] MEDS ORDERED: PROMETHAZINE HCL 25 MG/1 ML VIAL IVPUSH PRN (12:05)
--- NOTE | 2019-10-07 12:31 | OP ---
DATE OF OPERATION: 10/07/2019 PREOPERATIVE DIAGNOSIS: Internal derangement, right knee. POSTOPERATIVE DIAGNOSIS: Internal derangement, right knee. PROCEDURE: Arthroscopy, right knee, partial medial meniscectomy, and synovial biopsy. SURGEON: Randell Loera MD ANESTHESIA: General with LMA. CLOSURES: 4-0 nylon. COMPLICATIONS: None. CONDITION: To recovery room in stable condition. DESCRIPTION OF PROCEDURE: The patient was taken to the operating room on October 07, 2018. General anesthesia with LMA was administered by the anesthesiologist. Right lower extremity was prepped and draped in the usual sterile fashion. The medial and lateral infrapatellar portal sites were infiltrated with 1% Xylocaine with epinephrine. Both portals were then made with 15 blade followed by blunt trocar. The scope trocar was placed through the inferolateral portal and up the suprapatellar pouch. The fluid was drained from the knee. This fluid was sent to the lab for Gram stain, culture and sensitivity, cell count, crystals, AFP, fundus. The knee was then inflated with a cocktail 10 mL 1% lidocaine, 10 mL 0.5% Marcaine, and 20 mL of arthroscopic saline. Also at this time, IV Kefzol was administered by the anesthesiologist. After allowing the anesthetic to work in the knee, the procedure was performed. The pouch was visualized to be clean. The medial and lateral gutters were visualized to be clean. With valgus stress on the knee, the medial compartment was entered. The medial meniscus had a flap tear of its posterior horn. It was debrided back to smooth, stable meniscal tissue using meniscal biter and arthroscopic shaver. The medial femoral condyle had a nickel-sized lesion of grade 3 eburnation. The rest of the medial femoral condyle and tibial plateau appeared to be intact. Anteriorly, there was a great deal of synovium. This synovium was grasped with a grasper and sent for pathology. The ACL and PCL were visualized and probed and found to be intact. With a figure-4 position, lateral compartment was entered. The lateral meniscus was visualized and probed and found to be intact. The lateral femoral condyle was run and found to be intact as was the lateral tibial plateau. The knee was irrigated. Had copious amounts of irrigation. The fluid was drained from the knee. The medial portal was closed with 4 nylon, and the knee was inflated with 20 mL of 0.5% Marcaine. The trocar was pulled, and the lateral portal was closed with 3-0 nylon. Sterile pressure dressing was placed over the knee. Patient was awakened from anesthesia and transferred to recovery in stable condition. No complications. Estimated blood loss negligible. Claritza [id number]
[2019-10-07 13:02] VITALS: TEMP 98.4
[2019-10-07 13:47] VITALS: BP 114/62; PULSE 63
[2019-10-07 17:27] LABS: SYNOVIAL FLUID HISTIOCYTES 0 %; SYNOVIAL FLUID LYMPHOCYTES 2 %; SYNOVIAL FLUID MACROPHAGES 0 %; SYNOVIAL FLUID MONOCYTES 0 %; SYNOVIAL FLUID NEUTROPHILS 75 %; SYNOVIAL FLUID PLASMA CELLS 0 %
[2019-10-07 17:29] LABS: SYNOVIAL FLUID SOURCE RIGHT KNEE
--- NOTE | 2019-10-11 11:18 | PATH ---
Surgical Pathology Report Patient Name: TRESA SAINI Med. Rec. #: [id number] /Age/Gender: 1960 (Age: 59) / M Account: [id number] Location: [facility] AMBULATORY Taken: 10/07/2019 Received: 10/07/2019 Reported: 10/11/2019 Physicians: Randell Loera M.D. Specimen(s) Received A: SYNOVIAL BIOPSY RIGHT KNEE B: SHAVINGS RIGHT KNEE Clinical History Internal derangement Final Diagnosis A. SYNOVIIUM, RIGHT KNEE, BIOPSY: FIBROSYNOVIAL TISSUE SHOWING MODERATE CHRONIC AND MILD ACUTE INFLAMMATION WITH REACTIVE HYPERPLASIA. B. KNEE, RIGHT, ARTHROSCOPIC SHAVINGS: FIBROSYNOVIAL TISSUE SHOWING FIBRINO-INFLAMMATORY EXUDATE, MODERATE ACUTE AND CHRONIC INFLAMMATION AND REACTIVE HYPERPLASIA. CARTILAGE AND SCANT BONE WITH NO PATHOLOGIC FINDINGS. Electronically Signed Jeanette Forman M.D. Gross Description A. Received in formalin labeled "synovial biopsy right knee," are 2 shoemaker-yellow soft tissue fragments measuring 0.6 and 0.9 cm in greatest dimension. The specimens are submitted in toto in one cassette. B. Received in formalin labeled "shavings right knee," is a 3.0 x 3.0 x 0.3 cm aggregate of shoemaker-yellow to brown soft tissue fragments. A aircraft sales representative portion is submitted in one cassette. /10/07/2019 saudi10/07/2019
== END 2019-10-07 13:50 | disposition home or self-care (01) ==
LOC: FASU 06:40
PROVIDERS: ATTEND Orthopaedic Surgery
PROC: 0SBC4ZZ Excision of Right Knee Joint, Percutaneous Endoscopic Approach (ICD-10-PCS; principal; 2019-10-07 11:29)
DX: M23.321 Other meniscus derangements, posterior horn of medial meniscus, right knee (principal); M65.861 Other synovitis and tenosynovitis, right lower leg
CPT/HCPCS: 87070; 87075; 87102; 87116; 87205; 87206; 87210; 88304-TC; 88305-TC; 89051; 89060; 94760

== ENCOUNTER 2020-09-22 22:05 | Emergency (ER) | payer OTHER, BC ==
[2020-09-22 22:25] VITALS: TEMP 97; BMI 21.9
[2020-09-22 23:34] LABS: BASO % 0.5 % (0-2.0); HEMATOCRIT 40.6 % (35.4-49); HEMOGLOBIN 13.4 GM/dL (11.7-16.9); LYMPH % 27.7 % (8-40); MEAN CELL VOLUME 90.8 fl (80-96); MEAN PLT VOLUME 6.7 fl (7.5-11.1); MONO % 10.2 % (3.8-10.2); NEUT % 59.6 % (42.8-82.8); PLATELET COUNT 260 K/MM3 (134-434); RBC 4.47 M/mm3 (4.00-5.60); RDW 13.8 % (11.9-15.9); WHITE BLOOD COUNT 7.8 K/mm3 (4.0-10.0)
[2020-09-23 00:02] LABS: CHLORIDE 108 mmol/L (98-107); POTASSIUM 3.6 mmol/L (3.5-5.1); SODIUM 141 mmol/L (136-145)
[2020-09-23 00:04] LABS: CALCIUM 9.2 mg/dL (8.5-10.1)
[2020-09-23 00:05] LABS: ALBUMIN 3.7 g/dl (3.4-5.0); ANION GAP 9 MMOL/L (8-16); BLOOD UREA NITROGEN 15.7 mg/dL (7-18); CO2 24 mmol/L (21-32); GLUCOSE,RANDOM 108 mg/dL (74-106)
[2020-09-23 00:08] LABS: CREATININE 0.9 mg/dL (0.55-1.3); SGOT/AST 27 U/L (15-37); SGPT/ALT 42 U/L (13-61)
[2020-09-23 00:10] LABS: TOT PROT 7.1 g/dl (6.4-8.2)
[2020-09-23 00:11] LABS: ALK PHOS 62 U/L (45-117)
[2020-09-23 00:14] VITALS: BP 136/99; PULSE 57
[2020-09-23 00:42] LABS: BILIRUBIN,TOTAL 0.4 mg/dL (0.2-1)
== END 2020-09-23 01:05 | disposition home or self-care (01) ==
LOC: JER 22:05
DX: R07.9 Chest pain, unspecified (principal)
CPT/HCPCS: 36415; 71046-TC-FY; 80053; 82550; 84484; 85025; 93005; 93010; 99285-25